=== PATIENT | male | born 1970 | race African-American/Black ===

== ENCOUNTER 2016-10-16 11:31 | Day surgery (SDC) | payer OTHER ==
[~2016-10-16] VITALS: Ht 180.3 cm; Wt 81.3 kg
[2016-10-16] VITALS (13 sets, daily range): BP systolic 143–157; BP diastolic 88–111; PULSE 74–84; RESP 13–20; O2SAT 92–98
[~2016-10-16 11:31] MED LIST: AMLO10TA3 PO; CeFAZolin Inj 2 GM in IV Premix 1 EACH IV SCH; IBUP800T28 PO; LOSA100T29 PO; Lactated Ringer's 1,000 ML IV SCH
[2016-10-16] MEDS ORDERED: Dexamethasone 4 mg/mL Inj ONE (11:32)
[2016-10-16] MEDS ORDERED: MetoCLOpramide 5 mg/mL 2 mL Inj ONE (11:32)
[2016-10-16] MEDS ORDERED: Propofol 10,000 mCg/mL 20 mL Inj ONE (11:32)
[2016-10-16] MEDS ORDERED: Lidocaine PF 1% 30 mL Inj ONE (11:32)
[2016-10-16] MEDS ORDERED: Ondansetron 2 mg/mL 2 mL Inj ONE (11:32)
[2016-10-16] MEDS ORDERED: Lactated Ringer's 1,000 ML IV ONE (12:39)
[2016-10-16] MEDS ORDERED: HYDROcodone-APAP 7.5-325 mg Tablet PO PRN (13:00)
--- NOTE | 2016-10-16 13:11 | PCM.HPANE ---
Patient Data Date of Service: Oct 16, 2016 Surgeon Admitting Provider: Attending Provider:Ramsey Burch DO Primary Care Physician:Kvng Other Provider:Sami Hector Anesthesia Reason for Visit Right Distal Ulna Shaft Fracture Ht/WT & BMI Height (Feet): 5 Height (Inches): 11.00 Weight (Kilograms): 81.280 Body Mass Index 25.00 Allergies Coded Allergies: No Known Allergies (Unverified , 10/14/16) Past Anesthesia History Anesthesia History: Denies:: Anesthesia Reactions, Fam Anesthesia Reaction, Fam Malignant Hypertherm, Malignant Hyperthermia Diabetes History Hx Diabetes?: No Medications Hypertension Medication: Yes Home Meds Incl Beta Thomas: No Reported Medications Losartan Potassium 100 Mg [id number] Mg PO DAILY 10/14/16 Ibuprofen 800 Mg [id number] Mg PO TID PRN For Pain Ref 0 10/14/16 Amlodipine 10 Mg [id number] Mg PO DAILY Ref 0 10/14/16 History History of ENT Problems?: No Teeth Condition: Missing Teeth Hx of Heart Problems?: Yes Cardiovascular History: Positive for:: Hypertension Denies:: Chest Pain Hx of Respiratory Problem?: No Respiratory History: Denies:: Oxygen Administration Use of C-PAP Machine Hx Neurologic Problems?: No Neurological History: Denies:: CVA Seizures Hx of GI Problems?: No Gastrointestinal History: Denies:: Gastroesphageal Reflux Hx of Problems?: No Male Hx: Denies:: Prostate Problems Hx Musculoskeletal Problems?: Yes Musculoskeletal History: Positive for:: Musculoskeletal Trauma (right ulnar fracture current admission problem-DOI 10/08/16) Hx of Psycho/Social Problems?: No Hx Surgeries?: Yes (right lower leg fx) Hx Any Other Health Problems?: Yes Other History: Denies:: Cancer Hx Diabetes: No Hx Alcohol Use: YesAlcoholic Drinks Per Day: 32oz beer each evening Smoking Status: Current Every Day Smoker Have You Smoked inLast 12 mo: YesApprox How Many Cigarettes/day: [id number] Stop/Bang Treated for Sleep Apnea?: No Do You Have a CPAP Machine?: No S-Snoring: Do You Snore Loudly: Yes T-Tired: feel tired, fatigued: No O-Obsered: Observed not breath: No P-Blood Pressure: treated: Yes B- Body Mass Index > 35 kg/m2: No A- Age over 50: No N- Neck Large Circumference: No G- Gender Male: Yes [place] Risk Assessment: Low Risk, <3 Yes Risk Assessment Category Category 1A: Patient has history of documented sleep apnea, and HAS NOT received any narcotic, sedative or anesthesia administration during this stay. Category 1B: Patient has history of documented sleep apnea, and HAS received any narcotic , sedative or anesthesia administration during this stay Category 2: Patient has SUSPECTED Obstructive Sleep Apnea, and HAS received any narcotic , sedative or anesthesia administration during this stay. Category 3: Patient has SUSPECTED Obstructive Sleep Apnea and HAS NOT received narcotic, sedative or anesthesia administration during this stay. Category 4: Outpatient in Procedural Areas with known sleep apnea or who screen positive for High Risk via the STOP/BANG questionnaire. Exam Exam Vital Signs Vital Signs Date Time Temp Pulse Resp B/P Pulse Ox O2 Delivery O2 Flow Rate FiO2 10/16/16 12:40 36 77 18 151/89 98 Room Air General Appearance: Alert, Oriented X3, Cooperative, No Acute Distress HEENT/AIRWAY: MP 2, Neck Movement (from), Mouth Opening (>3), Other (TMD>3) Lungs: Diminished Heart: Exam Unremarkable, Regular Rate/Rhythm, Normal S1, Normal S2, No Murmurs /Rubs/Gallops Meds/Labs/Diagnostics Admission Meds Current Medications Lactated Ringer's (Lr) 1,000 ml @ ud STK-MED ONCE IV Last administered on t 12:39; Start 10/16/16 at 12:39; Stop 10/16/16 at 12:40; Status DC Plan Impression Patient chart reviewed, patient interviewed and anesthestic plan with risks, benefits, and alternatives discussed, and informed consent obtained. NPO Status: 10/15@2330 ASA Physical Status: ASA2 Mod Systemic Disease Anesthetic Plan: GA Bene/Risks/Altern/Consents: Yes HP Complete Prior to Induction: Yes Gregory Perez MD Oct 16, 2016 13:10
[2016-10-16] MEDS ORDERED: Lactated Ringer's 500 ML IV PRN ×2 (13:53→14:08)
[2016-10-16] MEDS ORDERED: Lactated Ringer's 1,000 ML IV SCH ×2 (13:53→14:08)
[2016-10-16] MEDS ORDERED: Ondansetron 2 mg/mL 2 mL Inj IVPUSH PRN ×2 (13:55→14:10)
[2016-10-16] MEDS ORDERED: Phenylephrine 10,000 mCg/mL Inj IVPUSH PRN ×2 (13:55→14:10)
[2016-10-16] MEDS ORDERED: EPHEDrine Sulfate 50 mg/mL Inj IVPUSH PRN ×2 (13:55→14:10)
[2016-10-16] MEDS ORDERED: Dexamethasone 4 mg/mL Inj IVPUSH PRN ×2 (13:55→14:10)
[2016-10-16] MEDS ORDERED: HYDROmorphone 1 mg/mL Inj IVPUSH PRN ×2 (13:55→14:10)
[2016-10-16] MEDS ORDERED: fentaNYL-PF 50 mCg/mL 2 mL Inj IVPUSH PRN ×2 (13:55→14:10)
[2016-10-16] MEDS ORDERED: MetoCLOpramide 5 mg/mL 2 mL Inj IVPUSH PRN ×2 (13:55→14:10)
[2016-10-16] MEDS ORDERED: Lidocaine 1%-Epi 1:100,000 20 mL Inj INFILTRATE ONE (15:02)
[2016-10-16] MEDS: Labetalol 5 mg/mL 4 mL Inj IV PRN ×3 (15:20→15:56)
[2016-10-16] MEDS ORDERED: Labetalol 5 mg/mL 4 mL Inj ONE (15:47)
--- NOTE | 2016-10-17 07:01 | PCM.ANEP1 ---
Post Anesthesia Phase 1 PACU Phase 1 Assessment Date of Service: Oct 16, 2016 Anesthetic Administered: GA Level of Alertness: Awake, talking CH's with Equal Strength: No (local infiltration by surgeon) Pain: No Pain Scale Score: 0 Nausea or Vomiting: No Oxygen Delivery: Simple Mask Lungs: Diminished Gregory Perez MD Oct 17, 2016 07:01
--- NOTE | 2016-10-17 10:28 | PCM.ANEP2 ---
Post Anesthesia Evaluation ASA/CMS Post Anesthesia VS in Patient's Normal Range?: Yes Resp Stable; Airway Patent?: Yes CV Function & Hydration Stable: Yes Mental Status Recovered?: Yes Pain control Satisfactory?: Yes N/V Control Satisfactory?: Yes Gregory Perez MD Oct 17, 2016 10:28
--- NOTE | 2016-10-17 13:49 | OP ---
[address] [address] OPERATIVE REPORT PATIENT: YAMILA MOORE : 1970 MR#: [id number] ADMIT: 10/16/2016 JOB ID: [id number] DATE OF SURGERY: 10/16/2016 PREOPERATIVE DIAGNOSIS(ES): Right distal ulnar diaphyseal fracture. POSTOPERATIVE DIAGNOSIS(ES): Right distal ulnar diaphyseal fracture. PROCEDURE: Open reduction and internal fixation of right distal ulnar diaphyseal fracture. SURGEON: Ramsey Burch DO. ANESTHESIA: General. DIRECTOR TRUST: Araceli Mcneil PA-C. BRIEF HISTORY: The patient is a pleasant 46-year-old male that fell going up the stairs and he struck the ulnar aspect of his right wrist on the staircase. He immediately had pain. Tried to work through the pain but due to his continued symptoms, presented to an outlying facility, where he was diagnosed with a distal ulnar diaphyseal fracture. He was placed into a splint. Upon presentation, he demonstrated with a displaced distal diaphyseal ulna shaft fracture. I discussed the patient the risks, benefits, alternatives and indications to proceed with open reduction and internal fixation of the distal ulnar diaphyseal fracture in order to anatomically align the ulnar shaft and prevent any issues with rotation of the forearm. He understood the risks to include, but not limited to, neurovascular injury, tendon injury, infection, failure of fixation, stiffness, persistent pain, all of which may require further intervention. The patient had all questions answered. Consent was signed and placed in the chart. PROCEDURE IN DETAIL: The patient was brought to the operating suite and placed supine on the operating room table. Surgical time-out performed. Everyone in the room was in agreement. After appropriate anesthesia was obtained, a right upper arm tourniquet was applied. The right upper extremity prepped and draped in a sterile fashion. Right upper extremity then exsanguinated and the tourniquet inflated to 250 mmHg. A longitudinal incision was made in line with the subcutaneous border of the ulna, centered at the fracture site. Dissection was carried down to the interval between the ECU and the FCU. The fracture site was identified. The fracture was then debrided of hematoma. Manual reduction was then performed, followed by application of a 2.7 mm lag screw. The 2.7 mm lag screw did not have good purchase and thus, this was swapped out to a 3.5 mm lag screw that demonstrated excellent fixation. Next, a 7-hole 2.7 mm LC-DCP plate was applied along the subcutaneous border of the distal ulna. The plate was then secured with nonlocking screws totaling three nonlocking screws proximal and three distal to the fracture site. This acted as a neutralization plate. Multiple views on fluoroscopy were utilized to verify anatomic reduction, appropriate placement of the hardware and appropriate length of the screws. Copious irrigation was performed, followed by closure of the fascia with 0 Vicryl, Vicryl for the subcutaneous tissues and a running nylon for the skin. The patient was then placed in a well-padded, well-molded short-arm splint. ESTIMATED BLOOD LOSS: Less than 5 cc. COMPLICATIONS: None. DISPOSITION: The patient tolerated the procedure well. Anesthesia was reversed. The patient was transferred to the PACU for recovery. IMPLANTS: A 3.5 mm Synthes lag screw, as well as a Synthes 2.7 mm 7-hole LC-DCP plate with six screws placed, all nonlocking cortical screws. POSTOPERATIVE PLAN: The patient will follow up in the office in two weeks. He has a therapy prescription already to have a brace fashioned to start initiating gentle range of motion exercises.
== END 2016-10-16 23:59 | disposition home or self-care (01) ==
LOC: SAS 11:31
PROVIDERS: ATTEND Orthopaedic Surgery
DX: S52.251A Displaced comminuted fracture of shaft of ulna, right arm, initial encounter for closed fracture (principal); I10 Essential (primary) hypertension; W10.8XXA Fall (on) (from) other stairs and steps, initial encounter; Y93.01 Activity, walking, marching and hiking; Y92.9 Unspecified place or not applicable; Y99.9 Unspecified external cause status; F17.210 Nicotine dependence, cigarettes, uncomplicated
CPT/HCPCS: 25545; 76000; C1713; J0690; J1100; J2250; J2270; J2405; J2765; J7120